=== PATIENT | female | born 1985 | race Two or more races ===

== ENCOUNTER 2019-03-01 11:20 | Observation (INO) | payer MEDICAID | END 2019-03-01 12:27 | disposition home or self-care (01) | DRG 566 | LOC: LDRP 11:20 | PROVIDERS: ADMIT Obstetrics & Gynecology; ATTEND Obstetrics & Gynecology | DX: O26.893 Other specified pregnancy related conditions, third trimester (principal); R10.9 Unspecified abdominal pain; Z3A.28 28 weeks gestation of pregnancy | CPT/HCPCS: 59025; 81002; G0378 ==

== ENCOUNTER 2019-03-02 13:35 | Observation (INO) | payer MEDICAID | END 2019-03-02 14:49 | disposition home or self-care (01) | DRG 563 | LOC: LDRP 13:35 | PROVIDERS: ADMIT Obstetrics & Gynecology; ATTEND Obstetrics & Gynecology | DX: O60.03 Preterm labor without delivery, third trimester (principal); Z3A.28 28 weeks gestation of pregnancy | CPT/HCPCS: 59025; 81002; G0378 ==